=== PATIENT | female | born 1995 | race American Indian/Alaskan Native ===

== ENCOUNTER 2016-11-09 09:15 | Emergency (ER) | payer MEDICAID ==
[2016-11-09 09:41] LABS: Basophils % (Auto) 1.1 % (0.0-1.8); Eosinophils % (Auto) 0.9 % (0.0-4.3); Hematocrit 40.6 % (30.3-42.9); Hemoglobin 13.4 gm/dl (10.1-14.3); Mean Corpuscular HGB Conc 33 % (30-34); Mean Corpuscular Hemoglobin 30 pg (28-32); Mean Corpuscular Volume 92 fl (79-97); Platelet Count 218 K/mm3 (140-440); Red Blood Count 4.42 M/mm3 (3.65-5.03); Red Cell Distribution Width 13.7 % (13.2-15.2); White Blood Count 6.2 K/mm3 (4.5-11.0)
[2016-11-09 10:04] LABS: Anion Gap 17 mmol/L; BUN/Creatinine Ratio 12.85; Blood Urea Nitrogen 9 mg/dL (7-17); Calcium 9.4 mg/dL (8.4-10.2); Carbon Dioxide 23 mmol/L (22-30); Chloride 103.5 mmol/L (98-107); Glucose 89 mg/dL (65-100); Potassium 3.9 mmol/L (3.6-5.0); Sodium 140 mmol/L (137-145)
[2016-11-09 10:15] LABS: Bilirubin,Urine NEG (Negative); Blood,Urine NEG (Negative); Ketones,Urine NEG (Negative); Leukocyte Esterase,Urine NEG (Negative); Nitrite,Urine NEG (Negative); Protein,Urine <15 mg/dL mg/dL (Negative); Urobilinogen,Urine < 2.0 mg/dL (<2.0)
[2016-11-09 10:19] LABS: WBC,Urine < 1.0 /HPF (0.0-6.0)
[2016-11-09 14:27] VITALS: BP 122/65
[2016-11-09] MEDS ORDERED: MORPHINE IM ONE (15:09)
[2016-11-09] MEDS ORDERED: ZOFRAN ODT PO ONE (15:09)
[2016-11-09] MEDS ORDERED: PEPCID PO ONE (15:10)
[2016-11-09] MEDS ORDERED: MORPHINE IV ONE (16:40)
--- NOTE | 2016-11-09 17:04 | Emergency Department Report ---
HPI - General Chief Complaint: Nausea/Vomiting/Diarrhea Time Seen by Provider: 11/09/16 14:30 - HPI HPI: The patient is a 21-year-old female presents for evaluation of abdominal pain. The patient reports epigastric abdominal pain for the past 2 days, 10/10 in severity, sharp in quality, radiating into the midsternal chest, exacerbated with retching. She also reports associated Loose watery stools, and nausea and nonbilious, nonbloody emesis. No vomiting within the past 24 hours. The patient denies fever, chills, night sweats, diarrhea, blood in the stool, dark tarry stool, dysuria, hematuria, flank pain, genital discharge, inability to pass flatus. ED Past Medical Hx - Past Medical History Previous Medical History?: Yes Hx Asthma: Yes Additional medical history: Peptic ulcer disease - Surgical History Past Surgical History?: Yes Additional Surgical History: Foot surgery 1996 - Social History Smoking Status: Current Every Day Smoker Substance Use Type: None - Medications Home Medications: Home Medications Medication Instructions Recorded Confirmed Last Taken Type Famotidine [Pepcid] 20 mg PO BID #60 tablet 01/28/16 Unknown Rx Omeprazole 40 mg PO DAILY #30 capsule.dr 01/28/16 Unknown Rx Promethazine [Phenergan TAB] 25 mg PO Q6HR PRN #30 tab 01/28/16 Unknown Rx Cyclobenzaprine HCl [Flexeril 5 MG 5 mg PO TID PRN #12 tab 11/09/16 Unknown Rx TAB] Ondansetron [Zofran Odt] 4 mg PO Q8HR #20 tab.rapdis 11/09/16 Unknown Rx ED Review of Systems ROS: Stated complaint: SEVERE CP/UPPER ABD PAIN Other details as noted in HPI Constitutional: denies: fever ENT: denies: throat or neck pain Respiratory: denies: cough, shortness of breath Cardiovascular: denies: chest pain Endocrine: denies unexplained weight loss or gain Gastrointestinal: reports abdominal pain, nausea Genitourinary: denies: dysuria Musculoskeletal: denies: leg swelling Skin: denies: rash Neurological: denies: headache Hematological/Lymphatic: denies: easy bleeding or easy bruising Psych: denies sadness or hopelessness Physical Exam - Physical Exam Vital Signs: Vital Signs 07/19/17 07/19/17 07/19/17 09:21 14:25 14:26 Temperature 98.4 F 98.7 F Pulse Rate 54 L Respiratory 14 14 Rate Blood Pressure 124/80 Blood Pressure 122/65 [Left] O2 Sat by Pulse 100 100 Oximetry Physical Exam: General: well-nourished, well-developed, no acute distress Head: Normocephalic, atraumatic Eyes: normal sclera ENT: Mucous membranes are pink and moist Neck: trachea midline, neck supple, No neck stiffness, no cervical adenopathy Respiratory: Breath sounds equal bilaterally, no wheezing, rales, or rhonchi Cardio: S1 and S2 present, no murmurs, rubs, gallops, capillary refill is brisk Abdomen: Normoactive bowel sounds, soft abdomen, epigastric and left upper quadrant tenderness to palpation present, no rigidity, no guarding or rebound tenderness Musc: No pitting edema Skin: No rash Neuro: no facial drooping, normal speech Psych: Normal affect ED Course Vital Signs 11/09/16 11/09/16 11/09/16 09:21 14:25 14:26 Temperature 98.4 F 98.7 F Pulse Rate 54 L Respiratory 14 14 Rate Blood Pressure 124/80 Blood Pressure 122/65 [Left] O2 Sat by Pulse 100 100 Oximetry ED Medical Decision Making - Lab Data Result diagrams: 11/09/16 09:30 11/09/16 09:30 - Medical Decision Making The patient was seen and examined by myself. The patient is placed on a monitor technician and continuous pulse ox. On initial evaluation, the patient was found to be in no distress. Evaluation orders are placed. IV access is established and the patient is given IM morphine for pain and Zofran for nausea. Lab results were non-concerning including WBC, hemoglobin, hematocrit, electrolytes, renal function, LFTs, lipase, and urinalysis. The patient was reevaluated and reported that their symptoms were markedly improved. The patient is stable for discharge with outpatient follow-up. The patient is given follow-up and return instructions. The patient expressed understanding and agreed with the plan. The patient is discharged in stable condition. Critical care attestation.: If time is entered above; I have spent that time in minutes in the direct care of this critically ill patient, excluding procedure time. ED Disposition Clinical Impression: Abdominal pain, acute, epigastric, Acute chest pain Disposition: DC-01 TO HOME OR SELFCARE Is pt being admited?: No Does the pt Need Aspirin: No Condition: Stable Instructions: Chest Pain (ED), Abdominal Pain (ED), Gastroenteritis (ED), Acute Nausea and Vomiting (ED), Food Poisoning (ED) Prescriptions: Cyclobenzaprine HCl [Flexeril 5 MG TAB] 5 mg PO TID PRN #12 tab PRN Reason: Pain Ondansetron [Zofran Odt] 4 mg PO Q8HR #20 tab.clara Referrals: PRIMARY CARE, [Primary Care Provider] - 3-5 Days Time of Disposition: 16:56
== END 2016-11-09 17:17 | disposition home or self-care (01) ==
LOC: ED 09:15
DX: R10.13 Epigastric pain (principal); R07.9 Chest pain, unspecified; R19.7 Diarrhea, unspecified; R11.0 Nausea; J45.909 Unspecified asthma, uncomplicated; F17.210 Nicotine dependence, cigarettes, uncomplicated
CPT/HCPCS: 36415; 80048; 81001; 85025; 96372; 96374; 99284; J2270; Q0162